=== PATIENT | female | born 1940 | race African-American/Black ===

== ENCOUNTER 2017-06-17 22:54 | Emergency (ER) | payer MEDICARE, BC ==
[~2017-06-17] VITALS: Ht 170.2 cm; Wt 77.0 kg
[~2017-06-17 22:54] MED LIST: ASPI-1159 PO; CALCIUM CHLORIDE 1GM/10ML SYR IV ONE; EPINEPHRINE 0.1MG/ML (1:10,000) 10ML SYR ONE; ESOM40CA PO; FLUO40CA8 PO; LOVA40TA73 PO; MELA5TAB3 PO; SODIUM BICARBONATE 7.5% 0.9 MEQ/ML 50ML SYR IV ONE
[2017-06-17 23:11] VITALS: BP 80/50
== END 2017-06-17 23:16 | disposition expired ==
LOC: ER 23:03
DX: I46.9 Cardiac arrest, cause unspecified (principal); E78.00 Pure hypercholesterolemia, unspecified; I10 Essential (primary) hypertension; Z79.82 Long term (current) use of aspirin
CPT/HCPCS: 31500; 92950; 99285; J3490